=== PATIENT | male | born 1965 | race Caucasian/White ===

== ENCOUNTER 2022-01-24 07:06 | Day surgery (SDC) | payer OTHER, SELFPAY ==
[2022-01-24] VITALS (9 sets, daily range): BP systolic 122–136; BP diastolic 68–84; PULSE 57–66; RESP 12–16; TEMP 36.3–36.7; O2SAT 94–99; BMI 35.2
[2022-01-24] MEDS: BUPIVACAINE 0.5% 30 ML INJECTION (07:25)
--- NOTE | 2022-01-24 09:01 | P.ORPRC_ITS ---
Procedure Note Date of procedure: 01/24/22 Procedure: PREOPERATIVE DIAGNOSIS: 1. Right carpal tunnel syndrome POSTOPERATIVE DIAGNOSIS: 1. Right carpal tunnel syndrome PROCEDURE: 1. Right open carpal tunnel release SURGEON: Rickey Garrison MD. EMPLOYMENT [employer] CLAIMS AIDE: Ariel Motley PA-C ANESTHESIA: Local anesthetic (50:50 mixture of 2% lidocaine with epi and 0.5% marcaine plain) IMPLANTS: None EBL: 2 mL TOURNIQUET: None COMPLICATIONS: None evident INDICATIONS: The patient is a pleasant 56-year-old male who has experienced right hand numbess/tingling affecting the radial 3.5 digits for multiple months. It has progressively gotten worse. Nonoperative management has been tried and failed, and therefore surgery was recommended. DESCRIPTION OF PROCEDURE: Following a thorough discussion of risks, benefits, and alternatives consent was obtained and the operative extremity was marked. The patient was brought to the operating room and placed supine on the operating table. Local anesthesia induction was undertaken in preop holding. No antibiotics were administered as this was planned to be a local case only. Proper time-out was performed identifying proper patient, site, and procedure. The operative extremity was prepped and draped in the appropriate sterile fashion using ChloraPrep. An incision was made in line with the radial border of the ring finger beginning 1 cm distal to the distal wrist crease and progressing for another 2.5cm distal. Caution was taken to stay proximal to Elias's cardinal line. Sharp incision through the skin, subcutaneous tissue, and palmar fascia was performed. The thenar musculature was bluntly elevated off the transverse carpal ligament. The ligament was directly visualized, and divided sharply with a 15 blade. This was released from its most proximal to the most distal extent. Metzenbaum scissor was also utilized to release the fascia extension proximally. We confirmed complete release of the transverse carpal ligament. Closure was performed with 4-O nylon in interrupted fashion. Soft dressings were applied, and the patient was transferred to the recovery room in stable condition. PLAN: 1. Encourage elevation of the operative extremity. 2. Range of motion of the fingers and hand/wrist as tolerated. 3. Ibuprofen/acetaminophen and/or Percocet as needed for pain control. 4. Follow up with PA visit or nurse visit in 12-16 days for wound check and suture removal.
== END 2022-01-24 09:19 | disposition home or self-care (01) ==
PROVIDERS: PCP Family Medicine; Visit Provider Orthopaedic Surgery Sports Medicine
PROC: (CPT 64721; principal; 2022-01-24 08:00)
DX: G56.01 Carpal tunnel syndrome, right upper limb (principal)
CPT/HCPCS: 64721; J3490

== ENCOUNTER 2022-01-26 13:57 | Outpatient (CLI) | payer OTHER, SELFPAY ==
[2022-01-26 14:54] LABS: Creatinine Urine 291.5 mg/dL
[2022-01-26 14:56] LABS: Microalbumin Creatinine Ratio 0 mg/g (0-30); Microalbumin Urine 1 mg/dL
[2022-01-26 15:19] LABS: Chloride* 107 mmol/L (96-114)
[2022-01-26 15:20] LABS: Albumin* 4.3 g/dL (3.3-5.0); Potassium* 4.2 mmol/L (3.6-5.1); Sodium* 141 mmol/L (135-149)
[2022-01-26 15:22] LABS: Alkaline Phosphatase* 33 U/L (40-150); Aspartate Amino Transferase* 36 U/L (12-35); Bilirubin Total* 0.6 mg/dL (0.1-1.5); Carbon Dioxide* 27 mmol/L (20-32); Creatinine* 0.9 mg/dL (0.5-1.5); Estimated Glomerular Filt Rate 101 ml/min; Total Protein* 6.8 g/dL (6.0-8.3)
[2022-01-26 15:23] LABS: Alanine Aminotransferase* 65 U/L (4-50); Blood Urea Nitrogen* 30 mg/dL (7-30); Calcium* 9.6 mg/dL (8.4-10.6); Glucose* 99 mg/dL (60-115)
[2022-01-26 15:54] LABS: PSA Screen* 1.02 ng/mL (0.10-4.00)
[2022-01-26 16:13] LABS: Vitamin B12* 554 pg/mL (243-894)
== END 2022-01-26 13:58 | disposition home or self-care (01) ==
PROVIDERS: PCP Family Medicine; Visit Provider Family Medicine
DX: Z00.00 Encounter for general adult medical examination without abnormal findings (principal); G57.92 Unspecified mononeuropathy of left lower limb; I10 Essential (primary) hypertension; Z12.5 Encounter for screening for malignant neoplasm of prostate; Z13.0 Encounter for screening for diseases of the blood and blood-forming organs and certain disorders involving the immune mechanism
CPT/HCPCS: 80053; 82043; 82570; 82607; 84153

== ENCOUNTER 2022-02-03 13:58 | Outpatient (CLI) | payer OTHER, SELFPAY ==
[2022-02-03 15:13] LABS: Cholesterol* 157 mg/dL (90-199)
[2022-02-03 15:14] LABS: HDL Cholesterol* 43 mg/dL (>=40); LDL Cholesterol Calculated 77 mg/dL (<100); Triglycerides* 184 mg/dL (40-149)
== END 2022-02-03 13:59 | disposition home or self-care (01) ==
PROVIDERS: PCP Family Medicine; Visit Provider Family Medicine
DX: E78.5 Hyperlipidemia, unspecified (principal); G57.92 Unspecified mononeuropathy of left lower limb; I10 Essential (primary) hypertension
CPT/HCPCS: 80061

== ENCOUNTER 2022-02-15 12:45 | Outpatient (CLI) | payer OTHER, SELFPAY ==
[2022-02-15 13:52] VITALS: BP 144/78; PULSE 87; RESP 18
--- NOTE | 2022-02-15 17:08 | W.PM.STED ---
Stress Test Note Date Date Seen: 02/15/22 Date of test: 02/15/22 Providers Primary care provider: Scarlet Christie Stress test physician: Igor Bauman Stress Test Note Stress test ordered: Stress Echo Indication for test: Chest pain Results discussion: This very nice gentleman presents here for stress echo if discussed the risks benefits side effects he would like to proceed pretest EKG shows normal sinus rhythm, no acute ST wave changes, rhythm is sinus with a rate of 61 and blood pressure 120/80, following standard Minesh protocol patient is exercised for a total time of 6 minutes, conditioning was felt to be moderate, test is terminated because of fulfillment of protocol, he had no chest pain no shortness of breath, no EKG changes suggestive of ischemia there is no dysrhythmias. Impression: Negative electrographic portion of stress echo Follow up suggested: Await echo images these will be read by Cardiology, clinical correlation with these will be needed.
== END 2022-02-15 14:00 | disposition home or self-care (01) ==
LOC: STRESS 12:46
PROVIDERS: PCP Family Medicine; Visit Provider Family Medicine
DX: R07.89 Other chest pain (principal); I51.7 Cardiomegaly
CPT/HCPCS: 93016; 93325; 93351

== ENCOUNTER 2022-02-22 21:00 | Outpatient (CLI) | payer OTHER, SELFPAY ==
--- NOTE | 2022-03-01 08:56 | W.PM.SLEEP ---
Sleep Study Details Details Interpreting Provider: Marcelino Sampson MD Date of Sleep Study: 02.23.2022 Sleep Study Details: STUDY TYPE:? Home ? BMI:? 35.3 ORDERING PROVIDER:? Shahnaz INDICATION:? Concerns about sleep apnea ? SLEEP SUMMARY:? 480.4 minutes monitored RESPIRATORY SUMMARY:? AHI 18.2, supine AHI 66.1, prone AHI 10.1, left lateral AHI 7.4, right lateral AHI 2.6 Low oxygen 74 8% of study oxygen less than 90%, 3.6% of study oxygen less than 85%, 1% of study oxygen less than 80% Snoring 8.1% PERIODIC LIMB MOVEMENTS OF SLEEP:? Not recorded CARDIAC:? Range 55-90, mean 61.8 IMPRESSION:? Moderate obstructive sleep apnea with very severe apnea in the supine position. RECOMMENDATION: AutoSet CPAP at pressure of 4-17. Weight loss is also recommended
--- NOTE | 2022-03-16 13:11 | W.PM.SLEEP ---
Sleep Study Details Details Interpreting Provider: Marcelino Sampson MD Date of Sleep Study: 02/22/22 Sleep Study Details: STUDY TYPE:? Home ? BMI:? 35.3 ORDERING PROVIDER:? Shahnaz INDICATION:? Concerns about sleep apnea ? SLEEP SUMMARY:? 480.4 minutes monitored RESPIRATORY SUMMARY:? AHI 18.2, supine AHI 66, prone 10.1, left lateral 7.4, right lateral 2.6 Low oxygen 74 8% of study oxygen less than 90%, 3.6% of study less than 85% and 1% of study less than 80% Snoring% 8.1 PERIODIC LIMB MOVEMENTS OF SLEEP:? Not recorded CARDIAC:? Range 55-90, mean 61.8 IMPRESSION:? Moderate obstructive sleep apnea with supine position dependency. Significant desaturations were also noted. RECOMMENDATION: Treatment options include CPAP AutoSet 4-17, dental appliance may work if patient sleeps in lateral position, and weight loss is recommended.
== END 2022-02-22 21:01 | disposition home or self-care (01) ==
LOC: SLEEP 03-15 14:22
PROVIDERS: PCP Family Medicine; Visit Provider Family Medicine
DX: G47.33 Obstructive sleep apnea (adult) (pediatric) (principal)
CPT/HCPCS: 95806

== ENCOUNTER 2022-04-25 09:44 | Outpatient (CLI) | payer OTHER, SELFPAY ==
[2022-04-25 15:01] LABS: Albumin* 4.2 g/dL (3.3-5.0); Chloride* 104 mmol/L (96-114); Potassium* 4.5 mmol/L (3.6-5.1); Sodium* 138 mmol/L (135-149)
[2022-04-25 15:04] LABS: Alanine Aminotransferase* 70 U/L (4-50); Alkaline Phosphatase* 31 U/L (40-150); Aspartate Amino Transferase* 38 U/L (12-35); Bilirubin Total* 0.7 mg/dL (0.1-1.5); Blood Urea Nitrogen* 22 mg/dL (7-30); Carbon Dioxide* 29 mmol/L (20-32); Creatinine* 0.9 mg/dL (0.5-1.5); Estimated Glomerular Filt Rate 101 ml/min; Glucose* 97 mg/dL (60-115); Total Protein* 7.1 g/dL (6.0-8.3)
[2022-04-25 15:05] LABS: Calcium* 9.3 mg/dL (8.4-10.6)
== END 2022-04-25 09:45 | disposition home or self-care (01) ==
PROVIDERS: PCP Family Medicine; Visit Provider Family Medicine
DX: I10 Essential (primary) hypertension (principal); G57.92 Unspecified mononeuropathy of left lower limb
CPT/HCPCS: 80053

== ENCOUNTER 2022-05-13 12:45 | Outpatient (CLI) | payer OTHER, SELFPAY | END 2022-05-13 12:46 | disposition home or self-care (01) | LOC: RAD 12:45 | PROVIDERS: PCP Family Medicine; Visit Provider Internal Medicine Cardiovascular Disease | DX: I10 Essential (primary) hypertension (principal); I35.0 Nonrheumatic aortic (valve) stenosis; R06.00 Dyspnea, unspecified | CPT/HCPCS: 93306 ==

== ENCOUNTER 2022-05-24 08:50 | Outpatient (RCR) | payer OTHER, SELFPAY ==
--- NOTE | 2022-05-17 09:00 | CRLHL7_ITS ---
For Patients: As a result of the Century Cures Act, medical imaging exams and procedure reports are released immediately into your electronic medical record. You may view this report before your referring provider. If you have questions, please contact your health care provider. [facility] ??? [facility] MYOCARDIAL PERFUSION SCAN CLINICAL HISTORY: 57-year-old male. Hypertension. Hyperlipidemia. Former smoker. Family history of heart disease in father. 5 feet 11 inches, 275 pounds. TECHNIQUE: (Resting SPECT and Stress Gated SPECT with wall motion and ejection fraction) Stress: Pharmacologic ??? Lexiscan (0.4 mg) (IV) Dose (Stress/Rest): 40.7 mCi/41.9 mCi Tc-99m Sestamibi (IV) Comparison: None FINDINGS: There is good uptake of activity by the left ventricle. No left ventricular enlargement is noted. There is soft tissue attenuation and mild motion artifact. No other significant fixed or reversible defects are identified. The gated images demonstrate a normal left ventricular ejection fraction of approximately 69 percent. No regional wall motion abnormalities are identified. IMPRESSION: 1. There is no evidence of significant myocardial ischemia or infarction. 2. Normal left ventricular ejection fraction of approximately 69 percent. Philip Ball M.D. Diagnostic/Nuclear Medicine Radiologist [email or web address] Transcribed: 1:09 pm DW/Dictated by: Philip Ball MD @ 05/24/2022 11:02:00 AM (Electronically Signed)
[2022-05-24] MEDS: REGADENOSON 0.4 MG/5 ML SYRINGE IVP (09:32)
[2022-05-24] MEDS: SODIUM CHLORIDE 0.9 % (FLUSH) 10 ML SYRINGE IVF (09:32)
[2022-05-24 10:12] VITALS: BP 137/85; PULSE 95
--- NOTE | 2022-05-24 17:15 | W.PM.STED ---
Stress Test Note Date Date Seen: 05/24/22 Date of test: 05/24/22 Providers Referring provider: Corey Blanco Primary care provider: Scarlet Christie Stress test physician: Igor Bauman Stress Test Note Stress test ordered: Lexiscmanolo Indication for test: Hypertension, shortness of breath Stress test medicine: Lexiscan Results discussion: Patient is very nice gentleman who presents to above test, after discussion the risks benefits and side effects he would like to proceed pretest EKG shows normal sinus rhythm, ventricular rate was 80, blood pressure 129 and 77, standard Lexiscan protocol is followed for a 5 minute., there were no complications, his maximum was 105, which is 75% of the predicted, you of the tracings post test show no evidence of any ischemia there is no ST wave changes, no ventricular rate medias, he tolerated this well with no complaints. Impression: Negative electrographic portion of Lexiscan Follow up suggested: Await nuclear images these will be jointly read by Cardiology and nuclear Medicine, patient had no complications left this testing facility in excellent condition.
== END 2022-05-31 23:59 | disposition home or self-care (01) ==
LOC: STRESS 08:50
PROVIDERS: PCP Family Medicine; Visit Provider Family Medicine
DX: R06.00 Dyspnea, unspecified (principal); R93.1 Abnormal findings on diagnostic imaging of heart and coronary circulation; I10 Essential (primary) hypertension; Z51.89 Encounter for other specified aftercare
CPT/HCPCS: 78452; 93016; 93017; A9500; J2785

== ENCOUNTER 2022-09-28 14:38 | Outpatient (CLI) | payer OTHER, SELFPAY ==
--- NOTE | 2022-09-28 14:45 | CRLHL7_ITS ---
For Patients: As a result of the Century Cures Act, medical imaging exams and procedure reports are released immediately into your electronic medical record. You may view this report before your referring provider. If you have questions, please contact your health care provider. Indication: palpable lumps mid/right submandibular Technique: Grayscale and color Doppler ultrasound of the right submandibular space. Images of the left submandibular space also performed for comparison purposes. Comparison: None Findings: In the submandibular space, there is a circumscribed lobular heterogeneously hypoechoic masslike area measuring 4.2 x 0.9 x 2.9 cm. Mild internal flow suspected. Left submandibular soft tissues are normal. Impression: Indeterminate mass within the right submandibular subcutaneous fat measuring 4.2 x 0.[address] neck with contrast recommended for further evaluation. Dictated by Dariel Woodward MD @ 09/28/2022 3:48:41 PM (Electronically Signed)
== END 2022-09-28 14:39 | disposition home or self-care (01) ==
LOC: US 14:39
PROVIDERS: PCP Family Medicine; Visit Provider Nurse Practitioner Family
DX: R22.1 Localized swelling, mass and lump, neck (principal)
CPT/HCPCS: 76536

== ENCOUNTER 2022-10-06 14:47 | Outpatient (CLI) | payer OTHER, SELFPAY ==
--- NOTE | 2022-10-06 15:00 | CRLHL7_ITS ---
For Patients: As a result of the 21st Century Cures Act, medical imaging exams and procedure reports are released immediately into your electronic medical record. You may view this report before your referring provider. If you have questions, please contact your health care provider. INDICATION: Right-sided neck mass. COMPARISON: Ultrasound 09/28/2022. TECHNIQUE: CT soft tissue neck with IV contrast. Omnipaque 350, 135 cc. FINDINGS: A marker is been placed on the panel flow machine operator image on the base of the right neck over the area of palpable abnormality. On the corresponding CT images, there is skin thickening and focal soft tissue nodularity in the immediate adjacent subcutaneous fat measuring approximately 16 x 11 and 12 x 9 mm (series 3, image 64). Mild surrounding edema but no organized fluid collection. No edema inflammation extending into the adjacent musculature of the right sternocleidomastoid muscle or strap muscle. No enlarged cervical lymph nodes. No supraclavicular superior mediastinal adenopathy. Normal bilateral parotid glands. There is asymmetric mild enhancement and enlargement at the inferior anterior aspect of the right submandibular gland as compared to left (series 3, image 58) which may represent early sialoadenitis. No intraglandular ductal dilatation or obstructing sialolith. Normal thyroid gland. Nasopharynx and oropharynx are clear. No inflammation within the parapharyngeal fat pads are retropharyngeal space. Normal thickness of the epiglottis. Normal glottis was symmetric vocal cords. Lung apices are clear. Normal alignment of cervical spine. Cervical spondylosis. No prevertebral soft tissue swelling. Visualized paranasal sinuses and mastoid air cells are clear. IMPRESSION: 1. At the level of the marker on the lower right neck, there is skin thickening and focal soft tissue nodularity in the subcutaneous fat. Mild surrounding edema. Findings indeterminate and may represent carbuncle or enlarged superficial subcutaneous lymph nodes. This may be amenable to tissue sampling under ultrasound guidance. 2. No adenopathy within the remainder of the neck. No supraclavicular superior mediastinal adenopathy. 3. Asymmetric moderate enhancement large amount of the right submandibular gland as compared to the left may represent early changes of sialoadenitis 4. Normal deep soft tissues of the neck 5. No prevertebral soft tissue swelling Please note that all CT scans at this facility use dose modulation, iterative reconstruction, and/or weight-based dosing when appropriate to reduce radiation dose to as low as reasonably achievable. Dictated by Juice Shi MD @ 10/07/2022 11:44:45 AM (Electronically Signed)
== END 2022-10-06 14:48 | disposition home or self-care (01) ==
LOC: CT 14:48
PROVIDERS: PCP Family Medicine; Visit Provider Nurse Practitioner Family
DX: R22.1 Localized swelling, mass and lump, neck (principal)
CPT/HCPCS: 70491; Q9967

== ENCOUNTER 2022-11-10 13:09 | Outpatient (CLI) | payer OTHER, SELFPAY | END 2022-11-10 13:10 | disposition home or self-care (01) | LOC: LONREF 13:11 | PROVIDERS: PCP Family Medicine; Visit Provider Nurse Practitioner Family | DX: Z01.818 Encounter for other preprocedural examination (principal) | CPT/HCPCS: 80048 ==

== ENCOUNTER 2022-12-05 06:16 | Day surgery (SDC) | payer OTHER, SELFPAY ==
[2022-12-05] MEDS: LACTATED RINGERS 1000 ML 1,000 ML 100 ML IV (05:55)
[2022-12-05 06:32] VITALS: BMI 37.6
[2022-12-05 06:44] VITALS: BP 145/74; PULSE 66; RESP 18; TEMP 36.5; O2SAT 95
[2022-12-05] MEDS: SODIUM CHLORIDE 0.9 % (FLUSH) 10 ML SYRINGE IVF (07:03)
--- NOTE | 2022-12-05 07:03 | SUR.PREOP ---
Pt s ring to
[2022-12-05] MEDS: BUPIVACAINE 0.25% 30 ML INJECTION (07:55)
[2022-12-05 08:11] VITALS: BP 116/68; PULSE 60; RESP 18; TEMP 36.9; O2SAT 94
--- NOTE | 2022-12-05 08:18 | W.ANESCHARGE ---
Anesthesia Charges Start Date/Time Anesthesia Start Date: 12/05/22 Anesthesia Start Time: 07:32 Stop Date/Time Anesthesia Stop Date: 12/05/22 Anesthesia Stop Time: 08:15
--- NOTE | 2022-12-05 08:19 | P.GSOP_ITS ---
Operative Note Pre-op diagnosis: Right Neck mass Post-op diagnosis: Same Type of Procedure: Excision superficial right neck mass measuring 2 x 1 x 1 cm Indications: The patient is a 57-year-old male who presented to clinic with a neck mass that was thought to start out like a small ingrown hair with infection and cellulitis however he had imaging done which showed an indeterminate nodule. It was thought that possibly could represent a cyst versus lymph nodes. It got significantly smaller, however to prevent future infection also to definitively diagnose the lesion he elected to have it removed. Procedure Description: After discussing the risks and benefits of the procedure, the patient signed informed consent.? The operative site was marked and the patient was brought to the operating room and placed on the operating table in supine position.? Care was taken to pad the patient's pressure points.?? The patient was then given se dation by anesthesia.?? The operative site was then prepped and draped in the usual sterile fashion.? A time-out was then performed. Local anesthetic was injected into the skin and subcutaneous tissue around the marked palpable mass. Just inferior to this there was an area that was tethered to the skin, possibly representing a sinus tract to assist. An ellipse was marked out to include this small area. An elliptical skin incision was then created over the mass and dissection was taken down into the subcutaneous fat. It appeared as though there was whitish scar tissue and a palpable nodule in this area. It was much smaller than was noted on CT scan. This extended inferiorly slightly and excise, leaving only normal subcutaneous fat. This was excised down to the superficial fascia. Hemostasis was then achieved with cautery. The wound was then closed with 3 0 Vicryl dermal and 4-0 Monocryl running subcuticular suture. Sterile dressings were then applied. ? The patient was then woken and transported to the recovery area in stable condition. ? The patient tolerated the procedure well. Findings: Likely remnants of prior carbuncle verses infected sebaceous cyst. Anesthesia: MAC Surgeon: Ayleen Young MD Estimated blood loss (mL): 2 Specimen: Other Additional Specimen Information: Right neck mass Condition: stable Disposition: same day Date of procedure: 12/05/22
[2022-12-05 08:29] VITALS: BP 117/70; PULSE 62; RESP 18; O2SAT 95
[2022-12-05 08:36] VITALS: BP 125/73; PULSE 58; RESP 18; O2SAT 95
[2022-12-05 08:55] VITALS: BP 120/72; PULSE 62; RESP 18; TEMP 37; O2SAT 95
== END 2022-12-05 08:57 | disposition home or self-care (01) ==
PROVIDERS: PCP Family Medicine; Visit Provider Surgery
PROC: (CPT 11424; principal; 2022-12-05 07:30)
DX: R22.1 Localized swelling, mass and lump, neck (principal)
CPT/HCPCS: 11424; 00300; 88305; J0665; J2250; J2704; J3490; J7120

== ENCOUNTER 2023-02-07 16:23 | Emergency (ER) | payer OTHER, SELFPAY ==
[2023-02-07] VITALS (11 sets, daily range): BP systolic 119–139; BP diastolic 65–87; PULSE 95–131; RESP 20–29; TEMP 37.3–38.8; O2SAT 92–95; BMI 36.6
--- NOTE | 2023-02-07 16:44 | ED_ITS ---
HPI - General Adult General Chief complaint: Fever Stated complaint: headache, dehyrdated, surgery on foot has pain Time Seen by Provider: 02/07/23 16:44 History of Present Illness HPI narrative: Patient reports recent ankle surgery (TCO) with a course of sulfa DS that has just finished for presumed hardware infection. On Monday patient reports fever, nausea, headache and now also reports nausea, vomiting and diarrhea. 57-year-old man presenting to the emergency department with concern of nausea and generalized abdominal pain. Abdominal pain is the main issue. He feels like he eats or drinks anything it just goes right through indicating diarrhea. He has not actually vomited. Did measure a fever. Reports this started about 36 hours ago. Did have surgery recently related to flat feet and ruptured tendon in the ankle. Last week was initiated on Bactrim after sending in pictures of redness on his foot and around the ankle. He has 3 or so days more of this Bactrim and admittedly looks a lot better. Is not complaining of more pain here. Continues to be allowed weight-bearing. Has been wearing his boot. Does endorse a history of sleep apnea. Related Data Home Medications Medication Instructions Recorded Confirmed cholecalciferol (vitamin D3) 25 25 mcg PO QDAY 09/22/21 12/29/22 mcg (1,000 unit) capsule iron,carbonyl 100 mg-vitamin C 250 1 tab PO QDAY 09/22/21 12/29/22 mg tablet multivitamin 1 tab PO QDAY 02/02/22 12/29/22 vitamin B complex (B 1 tab PO QDAY 02/02/22 12/29/22 Complex-Vitamin B12 tablet) vitamin E succinate 268 mg (400 268 mg PO QDAY 04/22/22 12/29/22 unit) tablet Previous Rx's Medication Instructions Recorded celecoxib 200 mg capsule 200 mg PO BID #180 caps 02/02/22 lisinopril 20 1 tab PO QDAY #90 tabs 02/02/22 mg-hydrochlorothiazide 12.5 mg tablet omeprazole 20 mg capsule,delayed 20 mg PO QDAY #90 caps 02/02/22 release simvastatin 40 mg tablet 40 mg PO QHS #90 tabs 02/02/22 Allergies Allergy/AdvReac Type Severity Reaction Status Date / Time No Known Allergies Allergy Verified 12/29/22 09:46 Review of Systems Status of ROS: Reports: 6 or more systems reviewed and unremarkable except as noted in History and below [facility] Medical History Pre-op exam ?Z01.818 - Encounter for other preprocedural examination (ICD-10) Hypertension ?I10 - Essential (primary) hypertension (ICD-10) Hyperlipidemia ?E78.5 - Hyperlipidemia, unspecified (ICD-10) Obstructive sleep apnea ?G47.33 - Obstructive sleep apnea (adult) (pediatric) (ICD-10) Lump on neck ?R22.1 - Localized swelling, mass and lump, neck (ICD-10) Right carpal tunnel syndrome ?G56.01 - Carpal tunnel syndrome, right upper limb (ICD-10) Umbilical hernia ?K42.9 - Umbilical hernia without obstruction or gangrene (ICD-10) Normal stress echocardiogram Surgical History S/P left knee arthroscopy ?Z98.890 - Other specified postprocedural states (ICD-10) S/P right knee arthroscopy (09/08/16) ?Z98.890 - Other specified postprocedural states (ICD-10) History of wisdom tooth extraction ?K08.409 - Partial loss of teeth, unspecified cause, unspecified class (ICD- 10) History of umbilical hernia repair ?Z98.890 - Other specified postprocedural states (ICD-10) ?Z87.19 - Personal history of other diseases of the digestive system (ICD-10) History of colonoscopy ?Z98.890 - Other specified postprocedural states (ICD-10) Family History Mother CREST syndrome Father Lung cancer Other Heart disease Social History Narrative: Smoking Status: Former smoker Do you use any of these nicotine containing products: None How often do you have a drink containing alcohol: monthly or less Alcohol type: beer How many standard drinks containing alcohol do you have on a typical day: 1 or 2 How often do you have six or more drinks on one occasion: Never AUDIT-C Alcohol total score: 1 Non-prescribed substance use: denies use Caffeine: Yes (coffee) Little interest or pleasure in doing things: not at all Feeling down, depressed, or hopeless: not at all Exam Narrative: Exam Narrative: Seems more comfortable keeping his eyes closed. Heavily bearded. Cranial nerves 2-12 intact. Will extremities without difficulty except for pain elicited with manipulation of his left ankle. There is no cellulitic change about the ankle or foot at this time. Large surgical scabs. There is a little weeping bruising through cracked scab over the Achilles on the left ankle. Otherwise skin looks perez and feels a little warm. Extremities are without edema. Is well-perfused. Oropharynx is sticky no erythema. Abdomen overweight. Diffusely mildly tender. Normoactive bowel sounds. Is generally little tremulous. Generally uncomfortable. Heart rate appears to be tachycardic. Regular rhythm. Distant. Mildly labored in breathing. Eyes are injected. Const: Vital Signs, click to edit/add: Vital Signs - 24 hr 02/07/23 16:35 02/07/23 16:39 02/07/23 17:29 Temperature 101.9 F H Pulse Rate Pulse Rate [Pulse Oximeter] 131 H 110 H 106 H Respiratory Rate 29 H 20 20 Blood Pressure Blood Pressure [Ri ght Upper Arm] 130/87 139/78 130/74 Pulse Oximetry 92 94 93 Oxygen Delivery Me thod Room Air Room Air Room Air 02/07/23 17:47 02/07/23 18:07 02/07/23 18:15 Temperature 100.3 F H Pulse Rate 105 H 105 H Pulse Rate [Pulse Oximeter] Respiratory Rate 22 Blood Pressure Blood Pressure [Ri ght Upper Arm] Pulse Oximetry 95 94 Oxygen Delivery Me thod 02/07/23 18:30 02/07/23 18:39 02/07/23 18:40 Temperature Pulse Rate 103 H 103 H 105 H Pulse Rate [Pulse Oximeter] Respiratory Rate Blood Pressure 128/73 Blood Pressure [Ri ght Upper Arm] Pulse Oximetry 94 95 95 Oxygen Delivery Me thod 02/07/23 18:45 02/07/23 20:00 Temperature 99.1 F Pulse Rate 101 H Pulse Rate [Pulse Oximeter] 95 Respiratory Rate 20 Blood Pressure Blood Pressure [Ri ght Upper Arm] 119/65 Pulse Oximetry 94 93 Oxygen Delivery Me thod Room Air Documenting provider has reviewed patient's vital signs: yes Course Vital Signs Vital signs: Initial Vital Signs Temperature 101.9 F H 02/07/23 16:35 Temperature Source Temporal Artery Scan 02/07/23 16:35 Pulse Rate 131 H 02/07/23 16:35 Respiratory Rate 29 H 02/07/23 16:35 Blood Pressure 130/87 02/07/23 16:35 Blood Pressure Mean 101 02/07/23 16:35 Pulse Oximetry 92 02/07/23 16:35 Oxygen Delivery Method Room Air 02/07/23 16:35 Vital Signs Temperature 101.9 F H 02/07/23 16:35 Pulse Rate 131 H 02/07/23 16:35 Respiratory Rate 29 H 02/07/23 16:35 Blood Pressure 130/87 02/07/23 16:35 Pulse Oximetry 92 02/07/23 16:35 Oxygen Delivery Method Room Air 02/07/23 16:35 Temperature 99.1 F 02/07/23 20:00 Pulse Rate 95 02/07/23 20:00 Respiratory Rate 20 02/07/23 20:00 Blood Pressure 119/65 02/07/23 20:00 Pulse Oximetry 93 02/07/23 20:00 Oxygen Delivery Method Room Air 02/07/23 20:00 Medications Administered Medications: Discontinued Medications Generic Name Dose Route Start Last Admin Trade Name Freq PRN Reason Stop Dose Admin Sodium Chloride 1,000 mls @ 1,000 mls/hr 02/07/23 17:05 02/07/23 18:41 0.9 % Sodium Chloride 1000 Ml IV 02/07/23 18:04 Infused .Q1H ONE Infusion Sodium Chloride 1,000 mls @ 1,000 mls/hr 02/07/23 17:51 02/07/23 19:54 0.9 % Sodium Chloride 1000 Ml IV 02/07/23 18:50 Infused .Q1H ONE Infusion Ceftriaxone Sodium 1 gm/ 100 mls @ 200 mls/hr 02/07/23 19:30 02/07/23 20:28 Sodium Chloride IVPB 02/07/23 19:31 Infused ONCE ONE Infusion Ondansetron HCl 4 mg 02/07/23 17:05 02/07/23 17:36 Ondansetron 2 Mg/Ml Inj IVP 02/07/23 17:06 4 mg ONCE ONE Administration Medical Decision Making MDM Narrative Medical decision making narrative: The most likely influenza like illness here with enteritis component. However is also hypoxic which sounds like he would explain with sleep apnea. Will need to look for other infectious etiology. Will order chest x-ray. Check lactate and blood cultures. I do not think he is septic however from his recent surgery/left ankle given appearance here today. Likely dehydrated. Most likely explains tachycardia however sepsis is still potential. Lactate is reassuring. CRP quite elevated at 20. White count is normal though has somewhat suppressed lymphocytes not inconsistent with COVID. Triple swab is negative for influenza and COVID. Mildly hypernatremic at 130. Did receive 1 L normal saline ordered for another. I think this should get him to low normal. I still think more of a viral process here. I think tachycardia more related to this process and fever than sepsis. Might be prudent to go ahead and dose with Rocephin. Re-examination the abdomen is less tender. Just describes burning sensation inside. He says he feels better since rehydration and looks to be less uncomfortable. Recommending close follow-up. Pending blood cultures. Lab Data Lab results reviewed: Yes I reviewed the patient's lab results Labs: Lab Results 02/07/23 02/07/23 Range/Units 17:06 17:15 WBC 4.83 (4.50-11.00) K/uL RBC 4.59 (4.30-5.90) m/uL Hgb 14.0 (13.5-17.5) gm/dL Hct 42.0 (37.0-53.0) % MCV 92 (80-100) fL MCH 31 (26-34) pg MCHC 33 (32-36) gm/dL RDW Coeff of Nick 12.0 (11.5-15.5) % Plt Count 157 (140-440) K/uL Neut % (Auto) 79.4 H (42.0-72.0) % Lymph % (Auto) 8.9 L (20-44) % Bullitt % (Auto) 4.3 (0.0-11.0) % Eos % (Auto) 6.4 (0.0-7.0) % Baso % (Auto) 0.6 (0.0-3.0) % Neut # (Auto) 3.80 (1.7-7.0) K/uL Lymph # (Auto) 0.40 L (0.90-2.90) K/uL Bullitt # (Auto) 0.20 (0.00-0.90) K/UL Eos # (Auto) 0.31 (0.00-0.50) K/uL Baso # (Auto) 0.03 (0.00-0.30) K/uL Abs Immat Gran (auto) 0.02 (0.00-0.30) K/uL Imm/Tot Granulo (auto) 0.4 % Sodium 130 L (135-149) mmol/L Potassium 3.8 (3.6-5.1) mmol/L Chloride 99 (96-114) mmol/L Carbon Dioxide 21 (20-32) mmol/L Anion Gap 10 (7-15) mEq/L BUN 24 (7-30) mg/dL Creatinine 1.0 (0.5-1.5) mg/dL Estimated Creat Clear 91.61 Estimated GFR 89 ml/min Glucose 113 (60-115) mg/dL Lactate 1.4 (0.5-1.9) mmol/L Calcium 9.1 (8.4-10.6) mg/dL C-Reactive Protein 20.0 H (0.5-1.0) mg/dL Procalcitonin 0.93 H (<0.50) ng/mL SARS-CoV-2 (PCR) Negative SARS-CoV-2 (Negative) Influenza Type A (PCR) Negative PCR FLU A (Negative) Influenza Type B (PCR) Negative PCR FLU B (Negative) RSV (PCR) Negative PCR RSV (Negative) Discharge Plan Discharge Clinical Impression: Diarrhea, Acute febrile illness Patient Disposition: Home w/ Parent or Adult Condition: Improved Instructions: Fever in Adults (ED) Additional Instructions: Blood cultures are pending here. Will call you if they go positive. Please keep a close eye on that right foot and ankle. Keep it elevated at rest. Might be good to have somebody who is seen it before have another look at it. Continue with your Bactrim at this time to complete the course. Focus on hydration. Zofran from [facility]. A potential side effect is constipation. Treat your fever with up to 800 mg of ibuprofen or up to 1000 mg of acetaminophen per dose. Prescriptions: No Action iron,carbonyl-vitamin C 100-250 mg tablet 1 tab PO QDAY cholecalciferol (vitamin D3) 25 mcg (1,000 unit) capsule 25 mcg PO QDAY vitamin B complex [B Complex-Vitamin B12] Tablet 1 tab PO QDAY multivitamin Tablet 1 tab PO QDAY lisinopril-hydrochlorothiazide 20-12.5 mg tablet 1 tab PO QDAY Qty: 90 3RF celecoxib 200 mg capsule 200 mg PO BID Qty: 180 3RF simvastatin 40 mg tablet 40 mg PO QHS Qty: 90 3RF omeprazole 20 mg capsule,delayed release(DR/EC) 20 mg PO QDAY Qty: 90 3RF vitamin E succinate 268 mg (400 unit) tablet 268 mg PO QDAY Follow Up/Referrals: Scarlet Christie DO [Primary Care Provider] - Stand Alone Forms: [employer] Info Instructions
[2023-02-07 17:17] LABS: Basophils Absolute Auto 0.03 K/uL (0.00-0.30); Basophils Percent Auto 0.6 % (0.0-3.0); Eosinophils Absolute Auto 0.31 K/uL (0.00-0.50); Eosinophils Percent Auto 6.4 % (0.0-7.0); Immature Granulocytes Abs Auto 0.02 K/uL (0.00-0.30); Immature Granulocytes Pct Auto 0.4 %; Lactate* 1.4 mmol/L (0.5-1.9); Lymphocytes Percent Auto 8.9 % (20-44); Mean Corpuscular HGB Conc 33 gm/dL (32-36); Mean Corpuscular Hemoglobin 31 pg (26-34); Mean Corpuscular Volume 92 fL (80-100); Monocytes Percent Auto 4.3 % (0.0-11.0); Neutrophils Percent Auto 79.4 % (42.0-72.0); Platelet Count* 157 K/uL (140-440); Red Blood Count 4.59 m/uL (4.30-5.90); White Blood Count* 4.83 K/uL (4.50-11.00)
[2023-02-07 17:20] LABS: Slide Review Reflex No
[2023-02-07] MEDS: 0.9 % SODIUM CHLORIDE 1000 ml 1,000 ML IV ×2 (17:34→18:37)
[2023-02-07] MEDS: ONDANSETRON 2 MG/ML inj 4 MG IVP (17:36)
[2023-02-07 17:44] LABS: Chloride* 99 mmol/L (96-114); Potassium* 3.8 mmol/L (3.6-5.1); Sodium* 130 mmol/L (135-149)
[2023-02-07 17:46] LABS: Est. Creatinine Clearance* 91.61; Estimated Glomerular Filt Rate 89 ml/min
[2023-02-07 17:47] LABS: Anion Gap 10 mEq/L (7-15); Blood Urea Nitrogen* 24 mg/dL (7-30); Calcium* 9.1 mg/dL (8.4-10.6); Carbon Dioxide* 21 mmol/L (20-32); Glucose* 113 mg/dL (60-115)
--- NOTE | 2023-02-07 17:57 | CRLHL7_ITS ---
For Patients: As a result of the Cures Act, medical imaging exams and procedure reports are released immediately into your electronic medical record. You may view this report before your referring provider. If you have questions, please contact your health care provider. INDICATION: .Hypoxia, fever, sleep apnea? TECHNIQUE: Chest 1 views. COMPARISON: None. FINDINGS: Underpenetration. Lungs: Normal lung volume. No consolidation. Vascular redistribution. Pleura: No pleural effusion or pneumothorax. Heart and Mediastinum: Normal heart size. The great vessels of the thorax are unremarkable. Bones: No acute displaced osseous process. IMPRESSION: No consolidation. Dictated by Dariel Luther MD @ 02/07/2023 6:26:23 PM (Electronically Signed)
[2023-02-07 18:00] LABS: PCR FLU A Negative PCR FLU A (Negative); PCR FLU B Negative PCR FLU B (Negative); PCR RSV Negative PCR RSV (Negative)
[2023-02-07 18:04] LABS: Procalcitonin* 0.93 ng/mL (<0.50)
[2023-02-07 18:09] LABS: SARS PCR* Negative SARS-CoV-2 (Negative)
[2023-02-07] MEDS: cefTRIAXone 1 GM in 0.9 % SODIUM CHLORIDE Mini-bag 100 ML IVPB (19:42)
== END 2023-02-07 20:28 | disposition home or self-care (01) ==
PROVIDERS: Emergency Provider Family Medicine; PCP Family Medicine
DX: R19.7 Diarrhea, unspecified (principal); R50.9 Fever, unspecified
CPT/HCPCS: 36415; 71045; 80048; 83605; 84145; 85025; 86140; 87040; 87631; 96365; 96375; 99284; J0696; J2405; J7030

== ENCOUNTER 2023-02-15 11:17 | Outpatient (CLI) | payer OTHER, SELFPAY | END 2023-02-15 11:18 | disposition home or self-care (01) | PROVIDERS: PCP Family Medicine; Visit Provider Family Medicine | DX: T81.40XA Infection following a procedure, unspecified, initial encounter (principal); E78.5 Hyperlipidemia, unspecified; I10 Essential (primary) hypertension | CPT/HCPCS: 87070; 87186 ==

== ENCOUNTER 2023-02-17 15:21 | Emergency (ER) | payer OTHER, SELFPAY ==
[2023-02-17 15:24] VITALS: BP 97/62; PULSE 75; RESP 18; TEMP 37.2; O2SAT 97; BMI 36.6
--- NOTE | 2023-02-17 16:19 | ED.GENADULT ---
HPI - General Adult General Chief complaint: Extremity Pain/Injury, Lower Stated complaint: L leg blood clot- sent from ultrasound Time Seen by Provider: 02/17/23 15:23 History of Present Illness HPI narrative: This 57-year-old male comes in for evaluation of possible blood clot in his left lower extremity. He had a surgery on his left lower extremity last month and now has some increased swelling and pain. An ultrasound was obtained prior to my visit with him and prior to room availability here and this returns positive for a nonocclusive clot in his peroneal veins. The patient does not have any shortness of breath or chest pain. He does not have a prior history of blood clots. He arrives with normal vital signs. Related Data Home Medications Medication Instructions Recorded Confirmed cholecalciferol (vitamin D3) 25 25 mcg PO QDAY 09/22/21 02/17/23 mcg (1,000 unit) capsule iron,carbonyl 100 mg-vitamin C 250 1 tab PO QDAY 09/22/21 02/17/23 mg tablet multivitamin 1 tab PO QDAY 02/02/22 02/17/23 vitamin B complex (B 1 tab PO QDAY 02/02/22 02/17/23 Complex-Vitamin B12 tablet) vitamin E succinate 268 mg (400 268 mg PO QDAY 04/22/22 02/17/23 unit) tablet sulfamethoxazole 800 1 tab PO BID 02/15/23 02/17/23 mg-trimethoprim 160 mg tablet Previous Rx's Medication Instructions Recorded celecoxib 200 mg capsule 200 mg PO BID #180 caps 02/02/22 lisinopril 20 1 tab PO QDAY #90 tabs 02/02/22 mg-hydrochlorothiazide 12.5 mg tablet omeprazole 20 mg capsule,delayed 20 mg PO DAILY #30 caps 02/09/23 release simvastatin 40 mg tablet 40 mg PO QPM #30 tabs 02/09/23 silver sulfadiazine 1 % topical 1 applic topical BID #50 grams 02/15/23 cream apixaban 5 mg (74 tabs) tablets in See Rx Instructions PO .COMPLEX 02/17/23 a dose pack ([employer]quJDCPhosphate DVT-PE Treat #74 ea 30D Start) tramadol 50 mg tablet 50 mg PO Q6H PRN pain #30 tabs 02/17/23 Allergies Allergy/AdvReac Type Severity Reaction Status Date / Time No Known Allergies Allergy Verified 02/17/23 15:29 Review of Systems Status of ROS: Reports: 10 or more systems reviewed and unremarkable except as noted in History and below Narrative: Constitutional: No fevers, no weight gain or loss. Eyes: No discharge. No vision changes. HENT: No congestion, no sore throat, no ear pain. Cardiovascular: No chest pain, no palpitations. Respiratory: No shortness of breath, no wheezes, no cough. Gastrointestinal: No abdominal pain, no vomiting, no diarrhea. Genitourinary: No dysuria, no hematuria. Musculoskeletal: Normal range of motion. His left lower extremity is in a walking boot from recovery from a surgery. Skin: No rashes, no pruritis. Neurological: No dizziness, weakness, sensory change, speech change. Endo/Heme/Allergies: No bruising or bleeding. No polydipsia. Pysch: no suicidality, no anxiety, no insomnia. All other systems reviewed and are negative. [facility] Medical History Pre-op exam ?Z01.818 - Encounter for other preprocedural examination (ICD-10) Hypertension ?I10 - Essential (primary) hypertension (ICD-10) Hyperlipidemia ?E78.5 - Hyperlipidemia, unspecified (ICD-10) Obstructive sleep apnea ?G47.33 - Obstructive sleep apnea (adult) (pediatric) (ICD-10) Lump on neck ?R22.1 - Localized swelling, mass and lump, neck (ICD-10) Right carpal tunnel syndrome ?G56.01 - Carpal tunnel syndrome, right upper limb (ICD-10) Umbilical hernia ?K42.9 - Umbilical hernia without obstruction or gangrene (ICD-10) Normal stress echocardiogram Surgical History S/P left knee arthroscopy ?Z98.890 - Other specified postprocedural states (ICD-10) S/P right knee arthroscopy (09/08/16) ?Z98.890 - Other specified postprocedural states (ICD-10) History of wisdom tooth extraction ?K08.409 - Partial loss of teeth, unspecified cause, unspecified class (ICD-10) History of umbilical hernia repair ?Z98.890 - Other specified postprocedural states (ICD-10) ?Z87.19 - Personal history of other diseases of the digestive system (ICD-10) History of colonoscopy ?Z98.890 - Other specified postprocedural states (ICD-10) Family History Mother CREST syndrome Father Lung cancer Other Heart disease Social History Narrative: Smoking Status: Former smoker Do you use any of these nicotine containing products: None How often do you have a drink containing alcohol: monthly or less Alcohol type: beer How many standard drinks containing alcohol do you have on a typical day: 1 or 2 How often do you have six or more drinks on one occasion: Never AUDIT-C Alcohol total score: 1 Non-prescribed substance use: denies use Caffeine: Yes (coffee) Little interest or pleasure in doing things: not at all Feeling down, depressed, or hopeless: not at all Exam Narrative: Exam Narrative: Constitutional: Well-developed, well-nourished, no acute distress. HEENT: Normocephalic, atraumatic. Neck: Normal range of motion. Nontender. Supple. Heart: Regular. No murmurs. Normal rate. Intact distal pulses. Lungs: Clear to auscultation. No chest discomfort. No wheezes, rhonchi, or rales. Abdomen: Normal bowel sounds. Nontender. No rebound tenderness. Genitalia: Deferred. Back: No midline tenderness. Normal range of motion. Extremities: Normal range of motion. Recent surgery to left lower extremity. Skin: Intact. No rash. Warm. No erythema or pallor. Neurologic: No altered sensation. No weakness. Alert and oriented. Psychiatric: No suicidality. No anxiety or depression. No insomnia. Nursing notes and vitals signs are reviewed. Const: Vital Signs, click to edit/add: Vital Signs - 24 hr 02/17/23 15:24 Temperature 99.0 F Pulse Rate [Right Pulse Oximeter] 75 Respiratory Rate 18 Blood Pressure [Ri ght Upper Arm] 97/62 Pulse Oximetry 97 Oxygen Delivery Me thod Room Air Course Vital Signs Vital signs: Initial Vital Signs Temperature 99.0 F 02/17/23 15:24 Temperature Source Temporal Artery Scan 02/17/23 15:24 Pulse Rate 75 02/17/23 15:24 Respiratory Rate 18 02/17/23 15:24 Blood Pressure 97/62 02/17/23 15:24 Blood Pressure Mean 73 02/17/23 15:24 Blood Pressure Position Sitting 02/17/23 15:24 Pulse Oximetry 97 02/17/23 15:24 Oxygen Delivery Method Room Air 02/17/23 15:24 Vital Signs Temperature 99.0 F 02/17/23 15:24 Pulse Rate 75 02/17/23 15:24 Respiratory Rate 18 02/17/23 15:24 Blood Pressure 97/62 02/17/23 15:24 Pulse Oximetry 97 02/17/23 15:24 Oxygen Delivery Method Room Air 02/17/23 15:24 Temperature 99.0 F 02/17/23 15:24 Pulse Rate 75 02/17/23 15:24 Respiratory Rate 18 02/17/23 15:24 Blood Pressure 97/62 02/17/23 15:24 Pulse Oximetry 97 02/17/23 15:24 Oxygen Delivery Method Room Air 02/17/23 15:24 Medical Decision Making MDM Narrative Medical decision making narrative: This patient had a surgery to his left lower extremity and now has developed a clot in his vessels in that calf region. The clot is nonocclusive. The patient does not have a prior history of blood clots. He states that he was taking an aspirin but discontinued this because it was bothering his stomach. He does not have any shortness of breath, tachycardia, hypoxia, or chest pain. I did discuss the role of CT imaging to evaluate for pulmonary embolism. I also discussed options for anticoagulant treatment. He elected to use Eliquis. He received his 1st tablet here and a prescription for a starter pack is provided. The patient does take Celebrex for chronic pain. I instructed him to discontinue this medicine and did provide prescription for some tablets of tramadol. He is instructed to follow-up with his primary physician for ongoing management. Discharge Plan Discharge Additional Instructions: Discontinue use of Celebrex while taking Eliquis. Follow-up with primary physician for ongoing management. Return if worsening. Prescriptions: New tramadol 50 mg tablet 50 mg PO Q6H PRN (Reason: pain) Qty: 30 0RF Eliquis DVT-PE Treat 30D Start 5 mg (74 tabs) tablets,dose pack See Rx Instructions PO .COMPLEX Qty: 74 0RF Rx Instructions: orally per package directions No Action iron,carbonyl-vitamin C 100-250 mg tablet 1 tab PO QDAY cholecalciferol (vitamin D3) 25 mcg (1,000 unit) capsule 25 mcg PO QDAY vitamin B complex [B Complex-Vitamin B12] Tablet 1 tab PO QDAY multivitamin Tablet 1 tab PO QDAY lisinopril-hydrochlorothiazide 20-12.5 mg tablet 1 tab PO QDAY Qty: 90 3RF celecoxib 200 mg capsule 200 mg PO BID Qty: 180 3RF vitamin E succinate 268 mg (400 unit) tablet 268 mg PO QDAY sulfamethoxazole-trimethoprim 800-160 mg tablet 1 tab PO BID silver sulfadiazine 1 % cream 1 applic topical BID Qty: 50 0RF Rx Instructions: apply a 1.5 mm thickness simvastatin 40 mg tablet 40 mg PO QPM Qty: 30 0RF omeprazole 20 mg capsule,delayed release(DR/EC) 20 mg PO DAILY Qty: 30 0RF Follow Up/Referrals: Scarlet Christie DO [Primary Care Provider] - Stand Alone Forms: [employer] Info Instructions
[2023-02-17] MEDS: APIXABAN 5 MG TABLET 10 MG PO (16:44)
== END 2023-02-17 16:57 | disposition home or self-care (01) ==
PROVIDERS: Emergency Provider Emergency Medicine Emergency Medical Services; PCP Family Medicine
DX: I82.462 Acute embolism and thrombosis of left calf muscular vein (principal)
CPT/HCPCS: 93971; 99284; A9270

== ENCOUNTER 2023-03-22 09:12 | Outpatient (CLI) | payer OTHER, SELFPAY ==
--- OUTSIDE RECORDS SUMMARY | 2023-03-22 09:36 | XMS_ITS | Referral Summary ---
Author Name Unknown Organization [facility] Address [address] [place] [address] Care Team Providers Care Forming Machine Tender Name Role Phone Darell Rangel MD Primary Care Provider [phone] Allergies Active Allergy Reactions Criticality Noted Date Comments No Known Allergies 12/12/2002 Medications Medication Sig Dispensed Refills Start Date End Date Status ibuprofen (ADVIL,MOTRIN) 800 MG tablet take 800 mg by mouth every 8 hours as needed. 0 Active Loratadine 10 MG capsuleIndications:E TD (eustachian tube dysfunction),Seasona l allergic rhinitis Take 10 mg by mouth daily. 90 capsule 3 02/23/2010 Active simvastatin (ZOCOR) 40 MG tablet TAKE ONE TABLET BY MOUTH ONE TIME DAILY AT BEDTIME 0 02/14/2021 Active lisinopril-hydrochlo rothiazide (ZESTORETIC) 20-12.5 MG tablet 0 03/29/2021 Active Active Problems Problem Noted Date Diagnosed Date CARDIOVASCULAR SCREENING; LDL GOAL LESS THAN 160 12/27/2009 Seasonal allergic rhinitis 11/04/2009 Immunizations Name Administration Dates Next Due HEPA 12/02/2008 TDAP Vaccine (Adacel) 12/02/2008 Social History Tobacco Use Types Packs/Day Years Used Date Smoking Tobacco: Former Cigarettes Q uit: 03/30/2002 Smokeless Tobacco: Never Alcohol Use Standard Drinks/Week Comments Yes 0 (1 standard drink = 0.6 oz pur e alcohol) socially Adolescent Education Answer Date Record ed Getting School Help Needed Not on file 11/27 Sex and Gender Information Value Date Recorded Sex Assigned at Not on file Gender Identity Not on file Sexual Orientation Not on file Last Filed Vital Signs Vital Sign Reading Time Taken Comments Blood Pressure 123/77 04/05/2021 9:50 AM GREEN CHAIN OPERATOR Pulse 72 04/05/2021 9:50 AM GREEN CHAIN OPERATOR Temperature 36.9 ??C (98.4 ??F) 04/05/2021 8:26 AM CS T Respiratory Rate 15 04/05/2021 9:50 AM GREEN CHAIN OPERATOR Oxygen Saturation 95% 04/05/2021 9:50 AM GREEN CHAIN OPERATOR Inhaled Oxygen Concentration - - Weight 115.7 kg (255 lb) 04/05/2021 8:26 AM GREEN CHAIN OPERATOR Height 182.9 cm (6') 04/05/2021 8:26 AM GREEN CHAIN OPERATOR Body Mass Index 34.58 04/05/2021 8:26 AM GREEN CHAIN OPERATOR Plan of Treatment Not on file Care Teams Forming Machine Tender Relationship Specialty Start [place] [id number] [place] [address] PCP - General 12/12/02
--- OUTSIDE RECORDS SUMMARY | 2023-03-22 09:36 | XMS_ITS | Clinical Summary ---
Author Name Unknown Organization [facility] Address [address] [place] [address] Care Team Providers Care Sound Effects Manager Name Role Phone Unavailable Primary Care Provider Unavailabl e Source Comments You are receiving this document as you are listed as the primary care provider,follow-up provider, or the patient has been referred to you for consultation.This is in compliance with the Medicare and[facility] EHR Incentive Program,which states Providers who transition their patient to another setting of careor provider of care or refers their patient to another provider of care shouldprovide summary care record for each transition of care or referral. [facility] Allergies No known active allergies Medications Medication Sig Dispensed Refills Start Date End Date Status simvastatin (ZOCOR) 40 MG tablet Take 40 mg by mouth daily at bedtime. 0 Active LISINOPRIL-HYDROCHLORO THIAZIDE OR 20/12.5 mg 0 Active celecoxib (CELEBREX) 200 MG capsule Take 200 mg by mouth two times a day. 0 Active omeprazole (PRILOSEC) 20 MG capsule Take 20 mg by mouth daily. Take 1 hour before a meal. 0 Active Social History Tobacco Use Types Packs/Day Years Used Date Smoking Tobacco: Former Cigarettes Q uit: 07/08/2002 Smokeless Tobacco: Former Sex and Gender Information Value Date Recorded Sex Assigned at Not on file Gender Identity Not on file Sexual Orientation Not on file Plan of Treatment Health Maintenance Due Date Last Done Comments Colon Cancer Screening Plan Due 1965 Hep C Screening (Preventive Services) 1967 HepB (1) 1967 PSA Screening Discussion 1967 COVID-19 Vaccine (#1) 1967 HIV Screening (Preventive Services) 1983 Adult Preventive Visit 1985 Cholesterol 2002 Zoster/Shingles (1 of 2) 2017 Influenza (#1) 2022 DTaP/Tdap/Td (3 - Tdap) 01/31/2029 02/01/20 19, 12/02/2008 HepA Aged Out 12/02/2008 No longer eligi ble based on patient's age to complete this topic Hib Aged Out No longer eligi ble based on patient's age to complete this topic IPV (Polio) Aged Out No longer eligi ble based on patient's age to complete this topic MCV4 Aged Out No longer eligi ble based on patient's age to complete this topic Pneumococcal Aged Out No longer eligi ble based on patient's age to complete this topic [address] Personal/Family Self 1965 [place] [address]
--- OUTSIDE RECORDS SUMMARY | 2023-03-22 09:36 | XMS_ITS | Clinical Summary ---
Author Name Unknown Organization [facility] Address [place], [place] [address] Care Team Providers Care Hebrew Teacher Name Role Phone Alanna Izaguirre MD Primary Care Provid er Unavailable Allergies No known active allergies Medications Medication Sig Dispensed Refills Start Date End Date Status celecoxib (CELEBREX) 200 mg capsule Take 200 mg by mouth 2 times daily if needed. 0 06/28/2021 Active lisinopril-hydrochloro thiazide 20-12.5 mg tablet (PRINZIDE) Take 1 Tablet by mouth once daily. 0 07/01/2021 Active simvastatin (ZOCOR) 40 mg tablet Take 40 mg by mouth at bedtime. 0 05/27/2021 Active omeprazole (PRILOSEC) 20 mg Delayed-Release capsule Take 20 mg by mouth once daily if needed. 0 06/01/2021 Active Social History Tobacco Use Types Packs/Day Years Used Date Smoking Tobacco: Former Cigarettes Q uit: 07/08/2002 Smokeless Tobacco: Never Tobacco Cessation:Counseling Given: Yes Social Connections Answer Date Recorded Frequency of Communication with Friends and Fami ly Not on file 04/22/2022 Sex and Gender Information Value Date Recorded Sex Assigned at Not on file Gender Identity Not on file Sexual Orientation Not on file Obstetrics History Last Filed Vital Signs Vital Sign Reading Time Taken Comments Blood Pressure 138/78 03/16/2022 1:45 PM SOLAR MECHANICAL ENGINEER tow er Pulse 70 03/16/2022 1:45 PM SOLAR MECHANICAL ENGINEER Temperature 36.7 ??C (98.1 ??F) 11/30/2016 9:42 AM CD T Respiratory Rate 16 11/30/2016 9:42 AM CDT Oxygen Saturation 96% 03/16/2022 1:45 PM SOLAR MECHANICAL ENGINEER Inhaled Oxygen Concentration - - Weight 127.9 kg (282 lb) 03/16/2022 1:45 PM SOLAR MECHANICAL ENGINEER Height 182.9 cm (6') 11/30/2016 9:42 AM CDT Body Mass Index 38.25 11/30/2016 9:42 AM CDT Plan of Treatment Health Maintenance Due Date Last Done Comments Tdap 1978 Depression screening for age 12+ 1979 HIV for age 15-65 1982 Hepatitis C screening for ag e 18-79 1985 Tetanus booster 1987 Colonoscopy through age 75 2012 Lipids for age 45-75 2012 Zoster (shingles) series for age 50+ (1 of 2) 2017 BMI (ht and wt on same day) for age 18+ 11/30/2017 11/30/2016 COVID-19 vaccine series (2022-24 season) 2022 06/13/2020, 05/23/2020 Influenza for age 50-64 10/28/2022 Pneumococcal series for age 6-64 Aged Out No longer eligible b ased on patient's age to complete this topic Care Teams Hebrew Teacher Relationship Specialty Start Date End Date Alanna Izaguirre MD PCP - General Family Practice 07/07/21
--- OUTSIDE RECORDS SUMMARY | 2023-03-22 09:36 | XMS_ITS | Clinical Summary ---
Author Name Unknown Organization [facility] Address [address] [place] [address] Care Team Providers Care Windows Support Engineer Name Role Phone Darell Rangel MD Primary Care Provider [phone] Allergies Active Allergy Reactions Criticality Noted Date [...] Due HEPA 12/02/2008 TDAP Vaccine (Adacel) 12/02/2008 Family History Medical History Relation Comments Connective Tissue Disorder Mother crest syndrome Heart Disease Mother heart valve, CHF Hypertension Mother Relation Status Comments Father (Age 65) lung Mother Alive crest syndrome, heart valve problems Social History Tobacco Use Types Packs/Day Years [...] Comments Blood Pressure 123/77 04/05/2021 9:50 AM SHED BOSS Pulse 72 04/05/2021 9:50 AM SHED BOSS Temperature 36.9 ??C (98.4 ??F) 04/05/2021 8:26 AM CS T Respiratory Rate 15 04/05/2021 9:50 AM SHED BOSS Oxygen Saturation 95% 04/05/2021 9:50 AM SHED BOSS Inhaled Oxygen Concentration - - Weight 115.7 kg (255 lb) 04/05/2021 8:26 AM SHED BOSS Height 182.9 cm (6') 04/05/2021 8:26 AM SHED BOSS Body Mass Index 34.58 04/05/2021 8:26 AM SHED BOSS Plan of Treatment Health Maintenance Due Date Last Done Comments ADVANCE CARE PLANNING 1965 ANNUAL REVIEW OF HM ORDERS 1967 CT COLONOGRAPHY 1967 FIT 1967 FLEX SIG 1967 HEPATITIS B IMMUNIZATION (1 of 3 - 3-dose series) 1967 sDNA (Cologuard) 1967 HIV SCREENING 1982 HEPATITIS C SCREENING 1985 YEARLY PREVENTIVE VISIT 03/30/2005 03/30/2004 LIPID 03/30/2009 03/30/2004 LUNG CANCER SCREENING 2017 ZOSTER IMMUNIZATION (1 of 2) 2017 COVID-19 Vaccine (3 - 2022-2 4 season) 2022 06/13/2020, 05/23/2020 INFLUENZA VACCINE (#1) 2022 PHQ-2 (once per calendar year) 2023 DTAP/TDAP/TD IMMUNIZATION (3 - Td or Tdap) 01/31/2029 01/31/2019, 12/02/2008 COLONOSCOPY 04/05/2031 04/05/2021, 04/05/2021 COLORECTAL CANCER SCREENING 04/05/2031 HPV IMMUNIZATION Aged Out No longer e ligible based on patient's age to complete this topic IPV IMMUNIZATION Aged Out No longer e ligible based on patient's age to complete this topic MENINGITIS IMMUNIZATION Aged Out No l onger eligible based on patient's age to complete this topic Pneumococcal Vaccine: Pediatrics (0 to 5 Years) and At-Risk Patients (6 to 64 Years) Aged Out No longer eligible b ased on patient's age to complete this topic RSV MONOCLONAL ANTIBODY Aged Out No l onger eligible based on patient's age to complete this topic Care Teams Windows Support Engineer Relationship Specialty [place] [address] [place] [address] PCP - General 12/12/02
== END 2023-03-22 09:13 | disposition home or self-care (01) ==
PROVIDERS: PCP Family Medicine; Visit Provider Family Medicine
DX: Z00.00 Encounter for general adult medical examination without abnormal findings (principal); E78.5 Hyperlipidemia, unspecified; I10 Essential (primary) hypertension; L03.90 Cellulitis, unspecified; Z12.5 Encounter for screening for malignant neoplasm of prostate
CPT/HCPCS: 80061; 82043; 82570; G0103

== ENCOUNTER 2023-05-05 07:43 | Emergency (ER) | payer OTHER, SELFPAY ==
[2023-05-05 07:48] VITALS: BP 130/75; PULSE 77; RESP 16; TEMP 37; O2SAT 96; BMI 35.9
--- NOTE | 2023-05-05 08:20 | ED_ITS ---
HPI - General Adult General Chief complaint: Extremity Pain/Injury, Lower Stated complaint: clot in left leg Time Seen by Provider: 05/05/23 07:47 History of Present Illness HPI narrative: This 58-year-old male comes in with warmth, redness, and mild swelling in his left lower extremity. He states that he woke up with these symptoms today and reports that he was on his feet much more than normal yesterday. He did have a surgery to his foot about 3 months ago and subsequently developed a blood clot in the left lower extremity. He is currently on Pradaxa. He does not report any shortness of breath or chest pain. He does not have any swelling in the upper portion of his leg. His symptoms are located at his ankle and extending almost a [address] toward his knee. Related Data Home Medications Medication Instructions Recorded Confirmed cholecalciferol (vitamin D3) 25 25 mcg PO QDAY 09/22/21 05/05/23 mcg (1,000 unit) capsule iron,carbonyl 100 mg-vitamin C 250 1 tab PO QDAY 09/22/21 05/05/23 mg tablet multivitamin 1 tab PO QDAY 02/02/22 05/05/23 vitamin B complex (B 1 tab PO QDAY 02/02/22 05/05/23 Complex-Vitamin B12 tablet) vitamin E succinate 268 mg (400 268 mg PO QDAY 04/22/22 05/05/23 unit) tablet Previous Rx's Medication Instructions Recorded omeprazole 20 mg capsule,delayed 20 mg PO DAILY #90 caps 03/10/23 release simvastatin 40 mg tablet 40 mg PO QPM #90 tabs 03/10/23 lisinopril 20 1 tab PO DAILY #90 tabs 03/22/23 mg-hydrochlorothiazide 12.5 mg tablet silver sulfadiazine 1 % topical 1 applic topical BID #50 grams 03/22/23 cream tramadol 50 mg tablet 50 mg PO BID PRN pain #60 tabs 03/26/23 dabigatran etexilate 150 mg 150 mg PO BID 90 days #180 caps 04/14/23 capsule (Pradaxa) cephalexin 500 mg capsule 500 mg PO TID 7 days #21 caps 05/05/23 Allergies Allergy/AdvReac Type Severity Reaction Status Date / Time No Known Allergies Allergy Verified 03/22/23 08:50 Review of Systems Status of ROS: Reports: 10 or more systems reviewed and unremarkable except as noted in History and below Narrative: Constitutional: No fevers, no weight gain or loss. Eyes: No discharge. No vision changes. HENT: No congestion, no sore throat, no ear pain. Cardiovascular: No chest pain, no palpitations. Respiratory: No shortness of breath, no wheezes, no cough. Gastrointestinal: No abdominal pain, no vomiting, no diarrhea. Genitourinary: No dysuria, no hematuria. Musculoskeletal: Normal range of motion. Skin: No rashes, no pruritis. Left lower extremity symptoms as described above. Neurological: No dizziness, weakness, sensory change, speech change. Endo/Heme/Allergies: No bruising or bleeding. No polydipsia. Pysch: no suicidality, no anxiety, no insomnia. All other systems reviewed and are negative. [facility] Medical History (Updated 05/05/23 @ 08:24 by Low Hernandez MD) Deep venous thrombosis ?I82.409 - Acute embolism and thrombosis of unspecified deep veins of unspecified lower extremity (ICD-10) Pre-op exam ?Z01.818 - Encounter for other preprocedural examination (ICD-10) Hypertension ?I10 - Essential (primary) hypertension (ICD-10) Hyperlipidemia ?E78.5 - Hyperlipidemia, unspecified (ICD-10) Obstructive sleep apnea ?G47.33 - Obstructive sleep apnea (adult) (pediatric) (ICD-10) Lump on neck ?R22.1 - Localized swelling, mass and lump, neck (ICD-10) Right carpal tunnel syndrome ?G56.01 - Carpal tunnel syndrome, right upper limb (ICD-10) Umbilical hernia ?K42.9 - Umbilical hernia without obstruction or gangrene (ICD-10) Normal stress echocardiogram Surgical History S/P left knee arthroscopy ?Z98.890 - Other specified postprocedural states (ICD-10) S/P right knee arthroscopy (09/08/16) ?Z98.890 - Other specified postprocedural states (ICD-10) History of wisdom tooth extraction ?K08.409 - Partial loss of teeth, unspecified cause, unspecified class (ICD- 10) History of umbilical hernia repair ?Z98.890 - Other specified postprocedural states (ICD-10) ?Z87.19 - Personal history of other diseases of the digestive system (ICD-10) History of colonoscopy ?Z98.890 - Other specified postprocedural states (ICD-10) Family History Mother CREST syndrome Father Lung cancer Other Heart disease Social History (Updated 03/23/23 @ 12:03 by Francesca Banks ~ CTA) Narrative: What is your current living situation?: I presently have a place to live Problems where you live: declined to answer Smoking Status: Former smoker Do you use any of these nicotine containing products: None How often do you have a drink containing alcohol: 4 or more times a week Alcohol type: beer How many standard drinks containing alcohol do you have on a typical day: 1 or 2 How often do you have six or more drinks on one occasion: Never AUDIT-C Alcohol total score: 4 Non-prescribed substance use: denies use and marijuana (any form) Caffeine: Yes (coffee) Little interest or pleasure in doing things: not at all Feeling down, depressed, or hopeless: not at all Exam Narrative: Exam Narrative: Constitutional: Well-developed, well-nourished, no acute distress. HEENT: Normocephalic, atraumatic. Neck: Normal range of motion. Nontender. Supple. Heart: Regular. No murmurs. Normal rate. Intact distal pulses. Lungs: Clear to auscultation. No chest discomfort. No wheezes, rhonchi, or rales. Abdomen: Normal bowel sounds. Nontender. No rebound tenderness. Genitalia: Deferred. Back: No midline tenderness. Normal range of motion. Extremities: Normal range of motion. Small amount of clear fluid draining from surgical wound in his left foot. Left lower extremity has erythema with mild swelling and increased warmth extending from the ankle toward his knee about a [address] Skin: Intact. No rash. Warm. No erythema or pallor. Neurologic: No altered sensation. No weakness. Alert and oriented. Psychiatric: No suicidality. No anxiety or depression. No insomnia. Nursing notes and vitals signs are reviewed. Const: Vital Signs, click to edit/add: Vital Signs - 24 hr 05/05/23 07:48 Temperature 98.6 F Pulse Rate [Pulse Oximeter] 77 Respiratory Rate 16 Blood Pressure [Ri ght Upper Arm] 130/75 Pulse Oximetry 96 Oxygen Delivery Me thod Room Air Course Vital Signs Vital signs: Initial Vital Signs Temperature 98.6 F 05/05/23 07:48 Temperature Source Temporal Artery Scan 05/05/23 07:48 Pulse Rate 77 05/05/23 07:48 Respiratory Rate 16 05/05/23 07:48 Blood Pressure 130/75 05/05/23 07:48 Blood Pressure Mean 93 05/05/23 07:48 Blood Pressure Position Supine 05/05/23 07:48 Pulse Oximetry 96 05/05/23 07:48 Oxygen Delivery Method Room Air 05/05/23 07:48 Vital Signs Temperature 98.6 F 05/05/23 07:48 Pulse Rate 77 05/05/23 07:48 Respiratory Rate 16 05/05/23 07:48 Blood Pressure 130/75 05/05/23 07:48 Pulse Oximetry 96 05/05/23 07:48 Oxygen Delivery Method Room Air 05/05/23 07:48 Temperature 98.6 F 05/05/23 07:48 Pulse Rate 77 05/05/23 07:48 Respiratory Rate 16 05/05/23 07:48 Blood Pressure 130/75 05/05/23 07:48 Pulse Oximetry 96 05/05/23 07:48 Oxygen Delivery Method Room Air 05/05/23 07:48 Medical Decision Making MDM Narrative Medical decision making narrative: This patient comes in with symptoms suspicious for cellulitis. He does have a history of blood clot in is currently taking Pradaxa. I did discuss the role of repeat ultrasound which the patient declined in a process of shared decision making. He does have a follow-up plan with the account services associate in a few weeks to evaluate whether he needs to stay on anticoagulants. Labs are obtained and these returned with reassuring findings. This patient has symptoms that should be treated for cellulitis. He received a prescription for Keflex. I did describe signs and symptoms that would indicate a need for return and re- evaluation. Lab Data Labs: Lab Results 05/05/23 Range/Units 08:30 WBC 6.46 (4.50-11.00) K/uL RBC 4.69 (4.30-5.90) m/uL Hgb 14.2 (13.5-17.5) gm/dL Hct 43.3 (37.0-53.0) % MCV 92 (80-100) fL MCH 30 (26-34) pg MCHC 33 (32-36) gm/dL RDW Coeff of Nick 12.5 (11.5-15.5) % Plt Count 277 (140-440) K/uL Neut % (Auto) 66.4 (42.0-72.0) % Lymph % (Auto) 19.3 L (20-44) % [place] % (Auto) 10.1 (0.0-11.0) % Eos % (Auto) 3.7 (0.0-7.0) % Baso % (Auto) 0.2 (0.0-3.0) % Neut # (Auto) 4.29 (1.7-7.0) K/uL Lymph # (Auto) 1.20 (0.90-2.90) K/uL [place] # (Auto) 0.70 (0.00-0.90) K/UL Eos # (Auto) 0.24 (0.00-0.50) K/uL Baso # (Auto) 0.01 (0.00-0.30) K/uL Abs Immat Gran (auto) 0.02 (0.00-0.30) K/uL Imm/Tot Granulo (auto) 0.3 % Sodium 139 (135-149) mmol/L Potassium 4.0 (3.6-5.1) mmol/L Chloride 104 (96-114) mmol/L Carbon Dioxide 25 (20-32) mmol/L Anion Gap 10 (7-15) mEq/L BUN 22 (7-30) mg/dL Creatinine 0.8 (0.5-1.5) mg/dL Estimated Creat Clear 113.17 Estimated GFR 104 ml/min Glucose 120 H (60-115) mg/dL Calcium 9.9 (8.4-10.6) mg/dL Discharge Plan Discharge Clinical Impression: Cellulitis Patient Disposition: Home, Self-Care Condition: Unchanged Additional Instructions: A bergman as prescribed. Keep leg elevated when sitting. Return if symptoms worsen. Follow up with MD as planned and needed. Prescriptions: New cephalexin 500 mg capsule 500 mg PO TID 7 Days Qty: 21 0RF No Action iron,carbonyl-vitamin C 100-250 mg tablet 1 tab PO QDAY cholecalciferol (vitamin D3) 25 mcg (1,000 unit) capsule 25 mcg PO QDAY vitamin B complex [B Complex-Vitamin B12] Tablet 1 tab PO QDAY multivitamin Tablet 1 tab PO QDAY vitamin E succinate 268 mg (400 unit) tablet 268 mg PO QDAY silver sulfadiazine 1 % cream 1 applic topical BID Qty: 50 0RF Rx Instructions: apply a 1.5 mm thickness lisinopril-hydrochlorothiazide 20-12.5 mg tablet 1 tab PO DAILY Qty: 90 3RF omeprazole 20 mg capsule,delayed release(DR/EC) 20 mg PO DAILY Qty: 90 3RF simvastatin 40 mg tablet 40 mg PO QPM Qty: 90 3RF tramadol 50 mg tablet 50 mg PO BID PRN (Reason: pain) Qty: 60 0RF dabigatran etexilate [Pradaxa] 150 mg capsule 150 mg PO BID 90 Days Qty: 180 0RF Follow Up/Referrals: Scarlet Christie DO [Staff Physician] - Stand Alone Forms: [facility] Info Instructions
[2023-05-05 08:47] LABS: Basophils Absolute Auto 0.01 K/uL (0.00-0.30); Basophils Percent Auto 0.2 % (0.0-3.0); Eosinophils Absolute Auto 0.24 K/uL (0.00-0.50); Eosinophils Percent Auto 3.7 % (0.0-7.0); Hematocrit 43.3 % (37.0-53.0); Hemoglobin* 14.2 gm/dL (13.5-17.5); Immature Granulocytes Abs Auto 0.02 K/uL (0.00-0.30); Immature Granulocytes Pct Auto 0.3 %; Lymphocytes Percent Auto 19.3 % (20-44); Mean Corpuscular HGB Conc 33 gm/dL (32-36); Mean Corpuscular Hemoglobin 30 pg (26-34); Mean Corpuscular Volume 92 fL (80-100); Monocytes Percent Auto 10.1 % (0.0-11.0); Neutrophils Absolute Auto 4.29 K/uL (1.7-7.0); Neutrophils Percent Auto 66.4 % (42.0-72.0); Platelet Count* 277 K/uL (140-440); RDW Coefficient of Variation % 12.5 % (11.5-15.5); Red Blood Count 4.69 m/uL (4.30-5.90); White Blood Count* 6.46 K/uL (4.50-11.00)
[2023-05-05 08:50] LABS: Slide Review Reflex No
[2023-05-05 08:51] LABS: Chloride* 104 mmol/L (96-114)
[2023-05-05 08:52] LABS: Sodium* 139 mmol/L (135-149)
[2023-05-05 08:54] LABS: Creatinine* 0.8 mg/dL (0.5-1.5); Est. Creatinine Clearance* 113.17; Estimated Glomerular Filt Rate 104 ml/min
[2023-05-05 08:55] LABS: Anion Gap 10 mEq/L (7-15); Blood Urea Nitrogen* 22 mg/dL (7-30); Calcium* 9.9 mg/dL (8.4-10.6); Carbon Dioxide* 25 mmol/L (20-32); Glucose* 120 mg/dL (60-115)
== END 2023-05-05 09:48 | disposition home or self-care (01) ==
LOC: ED 09:14
PROVIDERS: Emergency Provider Emergency Medicine Emergency Medical Services
DX: L03.116 Cellulitis of left lower limb (principal)
CPT/HCPCS: 36415; 80048; 85025; 99283; 99284

== ENCOUNTER 2024-03-28 15:19 | Outpatient (CLI) | payer BC, SELFPAY | END 2024-03-28 15:20 | disposition home or self-care (01) | PROVIDERS: PCP Family Medicine; Visit Provider Family Medicine | DX: E78.5 Hyperlipidemia, unspecified (principal); I10 Essential (primary) hypertension; G47.00 Insomnia, unspecified; Z12.5 Encounter for screening for malignant neoplasm of prostate; Z11.59 Encounter for screening for other viral diseases; Z82.49 Family history of ischemic heart disease and other diseases of the circulatory system | CPT/HCPCS: 80053; 80061; 82043; 82570; 86803; G0103 ==